=== PATIENT | female | born 1990 | race Caucasian/White ===

== ENCOUNTER 2022-02-28 10:20 | Emergency (ER) | payer SELFPAY ==
[~2022-02-28] VITALS: Ht 170.2 cm; Wt 82.7 kg
[2022-02-28 10:35] VITALS: BP 126/76
[2022-02-28] MEDS ORDERED: ONDANSETRON PF 4 MG/2 ML VIAL. IVP ONE ×2 (10:45→11:00)
[2022-02-28] MEDS ORDERED: IV NORMAL SALINE 1,000ML 1,000 ML IV ONE ×2 (10:45→11:00)
--- NOTE | 2022-02-28 10:53 | PHYS DOC ---
Past History Past Surgical History: Other Additional Past Surgical Histo: left oophrectomy (QASIM LI APRN) Alcohol Use: None (QASIM LI APRN) General Adult EDM: Chief Complaint: ABDOMINAL PAIN HPI: HPI: Patient is a 31-year-old female who presents to the emergency department for suprapubic pain that started today. Patient reports that when she had severe pain she started to become diaphoretic. She reports cramping with urination but denies any burning sensation. She is also reporting urinary urgency. She does have a history of endometriosis and does take [place] but has been off of it due to insurance issues. Patient denies nausea, vomiting, diarrhea, fevers, vaginal bleeding, vaginal discharge. Unknown last menstrual period due to IUD. (QASIM LI APRN) Review of Systems: Review of Systems: Constitutional: See HPI GI: See HPI : See HPI (QASIM LI APRN) Current Medications: Current Meds: Current Medications Medications (Trade) Dose Ordered Sig/[place] Start Time Stop Time Status Last Admin Dose Admin Fentanyl Citrate (Fentanyl 2ml Vial) 50 mcg 1X ONCE 02/28/22 10:45 02/28/22 10:46 DC Ondansetron HCl (Zofran) 4 mg 1X ONCE 02/28/22 10:45 02/28/22 10:46 DC Sodium Chloride 1,000 ml @ 1,000 mls/hr 1X ONCE 02/28/22 10:45 02/28/22 11:44 (QASIM LI APRN) Allergies: Allergies: Allergies Coded Allergies Type Severity Reaction Last Updated Verified No Known Drug Allergies 02/28/22 No (QASIM LI APRN) Physical Exam: PE: Constitutional: Well developed, well nourished, no acute distress, non-toxic appearance. [] HENT: Normocephalic, atraumatic, bilateral external ears normal, oropharynx moist, no oral exudates, nose normal. [] Eyes: PERRL, EOMI, conjunctiva normal, no discharge. [] Neck: Normal range of motion, no tenderness, supple, no stridor. [] Cardiovascular:Heart rate regular rhythm, no murmur [] Lungs & Thorax: Bilateral breath sounds clear to auscultation [] Abdomen: Bowel sounds normal, soft, suprapubic and right adnexal tenderness with palpation, no abdominal guarding or rigidity, no masses, no pulsatile masses. [] Skin: Warm, dry, no erythema, no rash. [] Back: No tenderness, no CVA tenderness. [] Extremities: No tenderness, no cyanosis, no clubbing, ROM intact, no edema. [] Neurologic: Alert and oriented X 3, normal motor function, normal sensory function, no focal deficits noted. [] Psychologic: Affect normal, judgement normal, mood normal. [] (QASIM LI APRN) Current Patient Data: Labs: Laboratory Tests Test 02/28/22 09:45 POC Urine HCG, Qualitative hcg negative (Negative) Vital Signs: Vital Signs Date Time Temp Pulse Resp B/P (MAP) Pulse Ox O2 Delivery O2 Flow Rate FiO2 02/28/22 10:35 97.7 82 18 126/76 (93) 99 Room Air (QASIM LI APRN) EKG: EKG: [] (QASIM LI APRN) Radiology/Procedures: Radiology/Procedures: []PROCEDURE: PELVIS COMPLETE US PELVIS COMPLETE History: Reason: suprapubic, r. adnexal pain / Spl. Instructions: / History: Comparison: None Technique: Grayscale and color Doppler imaging of the pelvis was performed using transabdominal technique. Findings: The uterus measures 8.1 x 6.0 x 3.6 cm. Uterus has an unremarkable appearance. IV positioned within the upper endometrial canal. Right ovary measures 5.9 x 6.5 x 6.8 cm. Complicated cystic lesion within the right ovary measures 5.2 x 5.7 x 5.9 cm with internal echogenicity. Normal Doppler flow to the right ovary. Prior left oophorectomy. IMPRESSION: 1. Complicated right ovarian cystic lesion, may represent endometrioma or hemorrhagic cyst. Recommend 6-12 week follow-up ultrasound. 2. IUD noted. Electronically signed by: Jhonny Morse DO (02/28/2022 11:33 AM) [id number] DICTATED AND SIGNED BY: JHONNY MORSE DO DATE: 02/28/22 1127 CC: QASIM LI APRN; PCP,UNKNOWN ~ (QASIM LI APRN) Heart Score: C/O Chest Pain: N/A Risk Factors: Risk Factors: DM, Current or recent (<one month) smoker, HTN, HLP, family history of CAD, obesity. Risk Scores: Score 0 - 3: 2.5% MACE over next 6 weeks - Discharge Home Score 4 - 6: 20.3% MACE over next 6 weeks - Admit for Clinical Observation Score 7 - 10: 72.7% MACE over next 6 weeks - Early Invasive Strategies (QASIM LI APRN) Course & Med Decision Making: Course & Med Decision Making Pertinent Labs and Imaging studies reviewed. (See chart for details) [] Patient presents to the emergency department for suprapubic pain. Patient does have a history of endometriosis and has been off of her medications for [facility] due to insurance issues. Patient does have tenderness over suprapubic region and right adnexa. Patient denies any vaginal discharge or bleeding. Urinalysis and test and blood work performed. Pelvic ultrasound performed. Patient treated with IV fluids, nausea and pain medication. Patient reports improvement in her symptoms following treatment in the emergency d epartment. Blood work is unremarkable, urinalysis is negative for any nitrites or leukocytes. CT shows a cyst on her right, patient is advised to follow-up with [facility] regarding this finding she will be discharged home with pain medication. I discussed with patient all findings and diagnostic testing as well as the need to follow-up with PCP for further evaluation and treatment or return to the ER if any new or worsening symptoms. Strict return precautions were also discussed at length. Patient voiced understanding and agreement with the plan. Patient is hemodynamically stable at the time of disposition. (QASIM LI APRN) Dragon Disclaimer: Dragon Disclaimer: This electronic medical record was generated, in whole or in part, using a voice recognition dictation system. (QASIM LI APRN) Attending Co-Sign The patient was seen and interviewed as well as examined at the bedside. The chart was reviewed. The case was discussed. Agree with the plan of care. (SUNG GRAY DO) Departure Departure: Impression: Primary Impression: Ovarian cyst Qualified Codes: N83.201 - Unspecified ovarian cyst, right side Disposition: HOME / SELF CARE / HOMELESS Condition: GOOD Referrals: PCP,UNKNOWN (PCP) Patient Instructions: Ovarian Cyst Additional Instructions: You are seen in the emergency department today for abdominal pain. You are noted to have a cyst on your right ovary. You can take ibuprofen or naproxen for mild pain. You are being discharged home with [place] which is hydrocodone and Tylenol and a combination tablet. This medication may cause sedation so do not take when you need to be alert, driving a vehicle or with alcohol. Follow- up with your [facility] regarding your cyst on your ovary. If you not have an OB/GY N you can follow-up with the physician attached to this discharge paperwork. I would advise you to contact them tomorrow. Return to the emergency department if you develop worsening of your pain, intractable nausea or vomiting, severe vaginal bleeding, high fevers refractory to treatment or any new or worsening concerns Scripts Hydrocodone Bit/Acetaminophen (HYDROCODONE-APAP 5-325 ) 1 Each Tablet 1 TAB PO PRN Q6HRS PRN for PAIN for 2 Days, #8 TAB 0 Refills Prov: QASIM LI APRN 02/28/22 QASIM LI APRN February 28, 2022 10:53 SUNG GRAY DO March 01, 2022 11:25
[2022-02-28 11:13] LABS: BACTERIA,URINE FEW /HPF (0-FEW); CLARITY,URINE CLEAR; COLOR,URINE YELLOW; GLUCOSE,URINE NEG (NEG); NITRITE,URINE NEG (NEG); SQUAMOUS EPITHELIAL CELL,UR FEW /LPF; UROBILINOGEN,URINE 0.2 mg/dL (0.2 mg/dL)
[2022-02-28 11:21] LABS: BASO % 1 % (0-3); EOS % 1 % (0-3); HEMATOCRIT 42.2 % (36.0-47.0); HEMOGLOBIN 14.5 g/dL (12.0-15.5); LYMPH # 1.4 x10^3/uL (1.0-4.8); LYMPH % 21 % (24-48); MEAN CORPUSCULAR HEMOGLOBIN 33 pg (25-35); MEAN CORPUSCULAR HGB CONC 34 g/dL (31-37); MEAN CORPUSCULAR VOLUME 97 fL (79-100); MONO # 0.3 x10^3/uL (0.0-1.1); MONO % 4 % (0-9); NEUT % 74 % (31-73); PLATELET COUNT 284 x10^3/uL (140-400); RED BLOOD COUNT 4.34 x10^6/uL (3.50-5.40); RED CELL DISTRIBUTION WIDTH 13.3 % (11.5-14.5); WHITE BLOOD COUNT 6.7 x10^3/uL (4.0-11.0)
--- NOTE | 2022-02-28 11:36 | RAD ---
US PELVIS COMPLETE History: Reason: suprapubic, r. adnexal pain / Spl. Instructions: / History: Comparison: None Technique: Grayscale and color Doppler imaging of the pelvis was performed using transabdominal techn ique. Findings: The uterus measures 8.1 x 6.0 x 3.6 cm. Uterus has an unremarkable appearance. IV positioned within the upper endometrial canal. Right ovary measures 5.9 x 6.5 x 6.8 cm. Complicated cystic lesion within the right ovary measures 5. 2 x 5.7 x 5.9 cm with internal echogenicity. Normal Doppler flow to the right ovary. Prior left oophorectomy. IMPRESSION: 1. Complicated right ovarian cystic lesion, may represent endometrioma or hemorrhagic cyst. Recommen d 6-12 week follow-up ultrasound. 2. IUD noted. Electronically signed by: Jhonny Florian DO (02/28/2022 11:33 AM) [id number]
[2022-02-28 11:57] LABS: CALCIUM 8.8 mg/dL (8.5-10.1); CREATININE 0.7 mg/dL (0.6-1.0); GFR 97.6; POTASSIUM 4.3 mmol/L (3.5-5.1)
[2022-02-28] MEDS ORDERED: KETOROLAC 30 MG/ML VIAL. IVP ONE (12:00)
[2022-02-28 12:03] LABS: ALBUMIN 4.2 g/dL (3.4-5.0); ALBUMIN/GLOBULIN RATIO 1.3 (1.0-1.7); TOTAL BILIRUBIN 0.4 mg/dL (0.2-1.0); TOTAL PROTEIN 7.4 g/dL (6.4-8.2)
[2022-02-28] MEDS ORDERED: HYDR-2155 PO (12:20)
== END 2022-02-28 12:31 | disposition home or self-care (01) ==
LOC: ER 10:20
DX: N83.201 Unspecified ovarian cyst, right side (principal)
CPT/HCPCS: 36415; 76856; 80053; 81001; 81025; 85025; 96361; 96374; 96375; 99284; J1885; J2405; J3010; J7030